=== PATIENT | male | born 1970 | race Caucasian/White ===

== ENCOUNTER 2017-12-15 17:02 | Emergency (ER) | payer OTHER ==
[~2017-12-15] VITALS: Ht 188 cm; Wt 159.0 kg
[~2017-12-15 17:02] MED LIST: AMIODARONE200 MG PO; ATIVAN1 M1 PO; BENZTROPINE2 MG PO; CITALOPRAM40 MG PO; CLONAZEPAM1 M1 PO; CLONAZEPAM1 MG PO; COGENTIN1 M2 OR; COLACE100 MG OR; COMBIVIR 1501 COMBO PO; DIGOXIN0.25 MG PO; FERROUS SULF325 M3 PO; FLUPHENAZINE10 MG OR; JANTOVEN2.5 MG PO; JANTOVEN5 MG PO; LAMICTAL25 MG PO; LEVOTHYROXIN150 MC1 PO; LORAZEPAM2 MG/ML IV; MAG-AL PLU1 OR; MILK OF MAG30 ML/UDC PO; MOTRIN400 MG PO; NO HOME MEDS; OMEPRAZOLE20 MG PO; SIMVASTATIN40 MG PO; SLEEP AID50 MG PO; TAB-A-VIT1 OR; THORAZINE25 MG PO; VALPROIC A250 MG/5 M OR; [UNRECOGNIZED DRUG - OTHER] IJ; [UNRECOGNIZED DRUG - OTHER] OR
[2017-12-15 17:55] LABS: HEMATOCRIT 39.8 % (39.0-50.0); HEMOGLOBIN 12.9 g/dl (14.0-18.0); IMMATURE GRANULOCYTES 0.6 % (0.0-1.0); MEAN CELL VOLUME 88.1 fL CALC (80.0-100.0); MEAN CORPUSCULAR HGB 28.5 pG CALC (26.0-32.0); MEAN CORPUSCULAR HGB CONC 32.4 g/L CALC (32.0-36.0); NEUT# 10.7 thou/uL (1.82-7.42); RED BLOOD COUNT 4.52 mill/uL (4.70-6.10)
[2017-12-15 18:08] LABS: ALBUMIN 3.9 g/dL (3.2-5.0); ALKALINE PHOSPHATASE 123 u/l (38-126); ANION GAP 13 (6-22 (CALC)); BILIRUBIN, TOTAL 0.4 mg/dL (0.0-1.4); BUN 12 mg/dL (9-20); BUN/CREATININE RATIO 21 (12-20 (CALC)); CARBON DIOXIDE 31 mmol/l (22-30); CHLORIDE 101 mmol/l (95-108); CREATININE 0.6 mg/dL (0.7-1.3); GFR > 60 ML/MIN (>=60 (CALC)); GFR FOR AFR.AMER. > 60 ML/MIN (>=60 (CALC)); POTASSIUM 4.1 mmol/l (3.5-5.1); SGOT/AST 28 u/l (17-59); SGPT/ALT 50 u/l (21-72); SODIUM 140 mmol/l (137-146); TOTAL PROTEIN 7.6 g/dL (6.3-8.2)
[2017-12-15] MEDS ORDERED: WARFARIN4 MG PO (18:17)
[2017-12-15] MEDS ORDERED: LEVOTHYROXIN175 MC1 PO (18:24)
[2017-12-15] MEDS ORDERED: CARBAMAZEP100 MG/5 M PO (19:07)
[2017-12-15] MEDS ORDERED: BENADRYL 550 MG/1 M2 IM (19:10)
[2017-12-15] MEDS ORDERED: ZESTRIL5 M1 PO (19:25)
[2017-12-15] MEDS ORDERED: DIGOXIN250 MCG PO (19:26)
[2017-12-15] MEDS ORDERED: TUMS500 MG PO (19:27)
[2017-12-15] MEDS ORDERED: METFORMIN500 MG PO (19:28)
[2017-12-15] MEDS ORDERED: QUETIAPINE FUM200 MG PO (19:29)
[2017-12-15] MEDS ORDERED: EUCERI1 (19:31)
[2017-12-15] MEDS ORDERED: BACTRIM DS1 TAB PO (22:40)
[2017-12-15 23:00] VITALS: BP 145/82
== END 2017-12-15 23:21 | disposition designated cancer center or children's hospital (05) | DRG 603 ==
LOC: ED 17:02
PROVIDERS: Emergency Medicine
DX: L03.311 Cellulitis of abdominal wall (principal); L98.499 Non-pressure chronic ulcer of skin of other sites with unspecified severity; K43.9 Ventral hernia without obstruction or gangrene; B95.7 Other staphylococcus as the cause of diseases classified elsewhere; I87.8 Other specified disorders of veins; Z76.5 Malingerer [conscious simulation]
CPT/HCPCS: Q9967

== ENCOUNTER → 2018-09-19 | Outpatient (REF) | payer OTHER ==
[~2018-09-19] MED LIST changes: +BACTRIM DS1 TAB PO; +BENADRYL 550 MG/1 M2 IM; +CARBAMAZEP100 MG/5 M PO; +DIGOXIN250 MCG PO; +EUCERI1; +LEVOTHYROXIN175 MC1 PO; +METFORMIN500 MG PO; +QUETIAPINE FUM200 MG PO; +TUMS500 MG PO; +WARFARIN4 MG PO; +ZESTRIL5 M1 PO
[2018-09-19 12:55] LABS: HEMATOCRIT 39.9 % (39.0-50.0); HEMOGLOBIN 12.9 g/dl (14.0-18.0); IMMATURE GRANULOCYTES 0.5 % (0.0-5.0); MEAN CELL VOLUME 87.3 fL CALC (80.0-100.0); MEAN CORPUSCULAR HGB 28.2 pG CALC (26.0-32.0); MEAN CORPUSCULAR HGB CONC 32.3 g/L CALC (32.0-36.0); NEUT# 4.68 thou/uL (1.82-7.42); RED BLOOD COUNT 4.57 mill/uL (4.70-6.10)
[2018-09-19 13:07] LABS: INTERNATIONAL NORMALIZED RATIO 1.3 RATIO (0.7-1.3)
[2018-09-19 13:13] LABS: ALBUMIN 4.4 g/dL (3.2-5.0); ALKALINE PHOSPHATASE 116 u/l (38-126); ANION GAP 16 (6-22 (CALC)); BILIRUBIN, TOTAL 0.3 mg/dL (0.0-1.4); BUN 13 mg/dL (9-20); BUN/CREATININE RATIO 19 (12-20 (CALC)); CARBON DIOXIDE 30 mmol/l (22-30); CHLORIDE 98 mmol/l (95-108); CREATININE 0.7 mg/dL (0.7-1.3); DIGOXIN < 0.4 ng/mL (0.8-2.0); GFR > 60 ML/MIN (>=60 (CALC)); GFR FOR AFR.AMER. > 60 ML/MIN (>=60 (CALC)); POTASSIUM 3.8 mmol/l (3.5-5.1); SGOT/AST 29 u/l (17-59); SODIUM 140 mmol/l (137-146); TOTAL PROTEIN 7.7 g/dL (6.3-8.2)
== END | disposition home or self-care (01) | DRG 948 ==
LOC: LABSPEC 12:25
PROVIDERS: ATTEND Internal Medicine
DX: R79.89 Other specified abnormal findings of blood chemistry (principal)

== ENCOUNTER 2020-05-29 15:09 | Emergency (ER) | payer OTHER ==
[~2020-05-29] VITALS: Ht 188 cm; Wt 181.8 kg
[2020-05-29 16:30] LABS: HEMATOCRIT 35.6 % (39.0-50.0); HEMOGLOBIN 11.3 g/dl (14.0-18.0); IMMATURE GRANULOCYTES 0.8 % (0.0-5.0); MEAN CORPUSCULAR HGB 27.3 pG CALC (26.0-32.0); MEAN CORPUSCULAR HGB CONC 31.7 g/dL CAL (32.0-36.0); NEUT# 3.57 thou/uL (1.82-7.42); RED BLOOD COUNT 4.14 mill/uL (4.70-6.10); RED CELL DISTRI WIDTH 13.5 % (11.5-15.5)
[2020-05-29 16:49] LABS: D-DIMER 0.26 mg/L (0.19-0.60)
[2020-05-29 16:50] LABS: ALBUMIN 3.9 g/dL (3.2-5.0); ALKALINE PHOSPHATASE 100 u/l (38-126); ANION GAP 12 (6-22 (CALC)); BUN 10 mg/dL (9-20); BUN/CREATININE RATIO 17 (12-20 (CALC)); CARBON DIOXIDE 27 mmol/l (22-30); CHLORIDE 97 mmol/l (95-108); CREATININE 0.6 mg/dL (0.7-1.3); GFR > 60 ML/MIN (>=60 (CALC)); GFR FOR AFR.AMER. > 60 ML/MIN (>=60 (CALC)); LIPASE 36 u/l (23-300); POTASSIUM 3.2 mmol/l (3.5-5.1); SGOT/AST 40 u/l (17-59); SODIUM 133 mmol/l (137-146); TOTAL PROTEIN 7.3 g/dL (6.3-8.2)
[2020-05-29 16:51] LABS: BILIRUBIN, TOTAL 0.6 mg/dL (0.0-1.4)
[2020-05-29 16:53] LABS: INTERNATIONAL NORMALIZED RATIO 1.1 RATIO (0.7-1.3); PROTHROMBIN TIME 10.9 SECONDS (9.0-12.5)
[2020-05-29] MEDS ORDERED: MEDDOSEPAK PO (17:48)
[2020-05-29] MEDS ORDERED: VENTOLIN HFA IN (17:48)
[2020-05-29] MEDS ORDERED: ZITHROMAX250 MG PO (17:48)
[2020-05-29 18:55] VITALS: BP 114/71
== END 2020-05-29 18:55 | disposition designated cancer center or children's hospital (05) | DRG 177 ==
LOC: ED 15:09
DX: U07.1 COVID-19 (principal); J12.89 Other viral pneumonia; E11.9 Type 2 diabetes mellitus without complications; I10 Essential (primary) hypertension; Z79.84 Long term (current) use of oral hypoglycemic drugs